=== PATIENT | female | born 1990 | race African-American/Black ===

== ENCOUNTER → 2024-02-10 14:36 | Outpatient (CLI) | payer OTHER, SELFPAY ==
[2024-02-10 19:47] LABS: Urine N gonorrhoeae NOT DETECTED
[2024-02-10 21:37] LABS: Urine Chlamydia NOT DETECTED
== END ==
PROVIDERS: Visit Provider Obstetrics & Gynecology
DX: Z11.3 Encounter for screening for infections with a predominantly sexual mode of transmission (principal); Z3A.11 11 weeks gestation of pregnancy
CPT/HCPCS: 87491; 87591

== ENCOUNTER → 2024-02-10 15:34 | Outpatient (CLI) | payer OTHER, SELFPAY ==
[2024-02-10 16:20] LABS: Add Manual Diff / Slide Review NO; Basophils Absolute Auto 0 /uL (0-100); Basophils Percent Auto 0.4 % (0-2); Eosinophils Absolute Auto 0 /uL (0-450); Eosinophils Percent Auto 0.2 % (2-4); Hematocrit 34.7 % (36-46); Hemoglobin 11.5 g/dL (12.0-16.0); Lymphocytes Absolute Auto 1000 /uL (1100-4500); Lymphocytes Percent Auto 12.6 % (25-40); Mean Corpuscular Hemoglobin 28.6 PG (26-34); Mean Corpuscular Volume 86.5 fL (80-100); Monocytes Absolute Auto 400 /uL (0-900); Neutrophils Absolute Auto 6200 /uL (1500-7000); Neutrophils Percent Auto 81.8 % (50-75); Platelet Count 356 X10^3/uL (150-400); Red Blood Cell Count 4.01 X10^6/uL (4.0-5.2); Red Cell Distribution Width 18.3 % (11.6-14.8); White Blood Cell Count 7.6 X10^3/uL (4.5-11.0)
[2024-02-10 19:42] LABS: Hemoglobin A1C% w Est Avg Glu 4.7 % (4.0-6.0)
== END ==
PROVIDERS: Referring Provider Obstetrics & Gynecology; Visit Provider Obstetrics & Gynecology
DX: O99.210 Obesity complicating pregnancy, unspecified trimester (principal)
CPT/HCPCS: 36415; 80055; 83036; 86787; 86803; 86850; 86900; 86901; 87389

== ENCOUNTER → 2024-03-09 09:27 | Outpatient (CLI) | payer OTHER, SELFPAY ==
[2024-03-12 10:08] LABS: Candida species Positive (Negative); Gardnerella vaginalis Positive (Negative); Trichomoas vaginalis Negative (Negative)
== END ==
PROVIDERS: Visit Provider Obstetrics & Gynecology
DX: N89.8 Other specified noninflammatory disorders of vagina (principal)
CPT/HCPCS: 87480; 87510; 87660

== ENCOUNTER → 2024-04-06 14:16 | Outpatient (CLI) | payer OTHER, SELFPAY ==
--- NOTE | 2024-04-06 14:17 | DI.US.S_ITS ---
PROCEDURE: US OB >= 14 WEEKS FETUS INDICATIONS: 20 week anatomy scan OUTSIDE/PRIOR DATING DATA: The calculations are made using the clinical ROBERT of 08/25/2024. TECHNIQUE: Real-time scanning was performed of the fetus, with image documentation and biometric measurements. Endovaginal scanning: Not performed COMPARISON: None. FINDINGS: General: A single living intrauterine gestation is present. Presentation: Breech. Placenta: Placental position is posterior , without previa. Amniotic fluid index: 12.5 cm, normal range is 5-24 cm. Single deepest vertical pocket is 3.2 cm. heart rate: 153 beats per minute. Maternal cervical canal: 4.7 cm long. Normal lower limit is 2.5 cm. biometrics: Biparietal diameter: 4.7 cm, 20 weeks 2 days Head circumference: 17.7 cm, 20 weeks 1 day Abdominal circumference: 15.8 cm, 20 weeks 6 days Femur length: 3.4 cm, 20 weeks 5 days Clinically estimated gestational age: 19 weeks 6 days Composite gestational age from present scan: 20 weeks 4 days Estimated weight and percentile: 375 g, 90th percentile Anatomic survey: Neuro: Ventricles are non-dilated at less than 10 mm. Cisterna magna is normal at 3-11 mm. Cerebellum is normal in size and morphology. Nuchal skin fold: Normal at less than 6 mm between 14-21 weeks gestational age. Face: Nose and lips, facial profile are normal. Spine: No evidence for spina bifida. Heart: Suboptimally visualized. Diaphragm: Diaphragm is intact. Stomach: Left-sided stomach is present. Kidneys: Right renal region measures 4 mm and left renal region measures 6 mm. Cord: 3-vessel cord has orthotopic insertion. Bladder: Normal in size. Extremities: All 4 extremities identified. IMPRESSION: Single living intrauterine at 19 weeks 6 days, ROBERT of 08/25/2024. hydronephrosis measuring 4 mm on the right and 6 mm on the left. Recommend repeat ultrasound at 30-33 weeks. heart is suboptimally visualized. Short-term follow-up should be considered. Estimated weight of 375 g, 90th percentile. We strive to produce accurate, complete, and clear reports of imaging services. To assist us in improving patient care, this report was composed using standard report templates and voice recognition software. Therefore, it may contain abnormal punctuation, insertions and/or omissions. Occasional wrong-word or sound-alike substitutions may occur. Though we review the report and make efforts to correct it, we do recommend that the report be read carefully in proper context to recognize any text inaccuracies. Dictated by: Amari Yuan M.D. on 04/06/2024 at 17:16 Approved by: Amari Yuan M.D. on 04/06/2024 at 17:19
== END ==
PROVIDERS: PCP Nurse Practitioner Family; Referring Provider Obstetrics & Gynecology; Visit Provider Obstetrics & Gynecology
DX: Z34.82 Encounter for supervision of other normal pregnancy, second trimester (principal); Z3A.19 19 weeks gestation of pregnancy
CPT/HCPCS: 76811

== ENCOUNTER → 2024-05-04 11:02 | Outpatient (CLI) | payer OTHER, SELFPAY ==
--- NOTE | 2024-05-04 11:03 | DI.US.S_ITS ---
PROCEDURE: US OB FOLLOW UP INDICATIONS: Structures not well seen on anatomy scan OUTSIDE/PRIOR DATING DATA: Last menstrual period (LMP): 11/19/2023. LMP-based estimated date of delivery (ROBERT): 08/25/2024. First dating scan (date and location): 02/10/2020. Estimated date of delivery (ROBERT) from first dating scan: 08/21/2024. The calculations are made using the clinical ROBERT of 08/25/2024. TECHNIQUE: Real-time scanning was performed of the fetus, with image documentation and biometric measurements. Endovaginal scanning: Not performed COMPARISON: [facility], , OB >= 14 WEEKS FETUS, 04/06/2024, 15:17. FINDINGS: General: A single living intrauterine gestation is present. Presentation: Transverse. Placenta: Placental position is posterior, without previa. Placental edge is 3.7 cm the internal cervical os. Amniotic fluid index: 10.8 cm, normal range is 5-24 cm. Single deepest vertical pocket is 3.1 cm. heart rate: 144 beats per minute. Maternal cervical canal: 4.5 cm long. Normal lower limit is 2.5 cm. Clinically estimated gestational age: 23 weeks 6 days Anatomic survey: Face: Nose and lips, facial profile are normal. Heart: 4-chambered heart is present, with normal ventricular outflow tracts. Kidneys: No hydronephrosis. Normal is less than 5 mm in 2nd trimester, less than 7 mm in 3rd trimester. IMPRESSION: 1. Melendez living intrauterine at 23 weeks 6 days based on prior dating. 2. Normal placenta and amniotic fluid. 3. profile, heart, and kidneys have a normal appearance. We strive to produce accurate, complete, and clear reports of imaging services. To assist us in improving patient care, this report was composed using standard report templates and voice recognition software. Therefore, it may contain abnormal punctuation, insertions and/or omissions. Occasional wrong-word or sound-alike substitutions may occur. Though we review the report and make efforts to correct it, we do recommend that the report be read carefully in proper context to recognize any text inaccuracies. Dictated by: Ant Jara M.D. on 05/04/2024 at 20:25 Approved by: Ant Jara M.D. on 05/04/2024 at 20:37
== END ==
LOC: US 11:02
PROVIDERS: PCP Nurse Practitioner Family; Referring Provider Specialist; Visit Provider Specialist
DX: Z34.92 Encounter for supervision of normal pregnancy, unspecified, second trimester (principal); Z3A.23 23 weeks gestation of pregnancy
CPT/HCPCS: 76816

== ENCOUNTER → 2024-05-04 12:28 | Outpatient (CLI) | payer OTHER, SELFPAY ==
[2024-05-07 10:53] LABS: Candida species Positive (Negative); Gardnerella vaginalis Positive (Negative); Trichomoas vaginalis Negative (Negative)
== END ==
PROVIDERS: PCP Nurse Practitioner Family; Visit Provider Obstetrics & Gynecology
DX: O99.891 Other specified diseases and conditions complicating pregnancy (principal); N89.8 Other specified noninflammatory disorders of vagina; Z3A.23 23 weeks gestation of pregnancy
CPT/HCPCS: 76816; 87480; 87510; 87660

== ENCOUNTER → 2024-06-01 09:13 | Outpatient (CLI) | payer OTHER, SELFPAY ==
[2024-06-01 11:08] LABS: Hematocrit 33.8 % (36-46); Hemoglobin 11.3 g/dL (12.0-16.0)
[2024-06-01 11:27] LABS: GTT (PREG) 1 Hour PP 50gm Dose 100 mg/dL (76-139)
== END ==
PROVIDERS: PCP Nurse Practitioner Family; Referring Provider Obstetrics & Gynecology; Visit Provider Obstetrics & Gynecology
DX: Z34.82 Encounter for supervision of other normal pregnancy, second trimester (principal); Z3A.26 26 weeks gestation of pregnancy
CPT/HCPCS: 36415; 82950; 85014; 85018